=== PATIENT | female | born 1960 ===

== ENCOUNTER 2020-07-06 06:48 | Outpatient (CLI) | payer MEDICARE, MEDICAID, SELFPAY ==
--- NOTE | ~2020-07-06 | MR_ITS ---
EXAMINATION: MR cervical spine wo/w con EXAM DATE: 07/06/2020 08:13 INDICATION: Cervicalgia, postlaminectomy syndrome. Left arm pain. TECHNIQUE: Multi-sequential, multiplanar MR images of the cervical spine were obtained without contra st. Axial T2, axial T2 MERGE sequence. Sagittal T1, T2, T2 fat saturation images also obtained. Axi al T1 weighted sequence. Patient was then injected with 17 mL Multihance intravenous contrast and re imaged. Postcontrast axial and sagittal T1-weighted fat saturation sequences were obtained. There ar e no prior studies for comparison. FINDINGS: Study is limited due to patient motion. There is cervical thoracic levoscoliosis which is more likely compensatory for thoracic dextroscoliosis. Cervical fusion C4-C7. There is 2 mm anterolis thesis C7 on T1. The vertebral bodies are otherwise aligned. The spinal cord signal intensity and int rinsic morphology is normal. Cervicomedullary junction is normal in appearance. Paraspinal soft tissu e is unremarkable. There are no areas of abnormal enhancement on the post contrast images. Level by level evaluation: C2-C3: Disc does not extend beyond the endplate margin. Uncovertebral joint arthropathy: Mild bilateral. Facet joint arthropathy: Moderate bilateral. Neural foraminal stenosis: Mild left. Central canal stenosis: No stenosis. C3-C4: There is a mild diffuse disc bulge. Uncovertebral joint arthropathy: Mild to moderate bilateral. Facet joint arthropathy: Moderate to severe left, mild to moderate right. Neural foraminal stenosis: Moderate left, mild right. Central canal stenosis: Mild. C4-C5: This level is fused. Uncovertebral joint arthropathy: Mild to moderate right. Facet joint arthropathy: Moderate right, mild left. Neural foraminal stenosis: Mild to moderate right. Central canal stenosis: No stenosis. C5-C6: This level is fused. Uncovertebral joint arthropathy: Mild bilateral. Facet joint arthropathy: Mild bilateral. Neural foraminal stenosis: No stenosis. Central canal stenosis: No stenosis. C6-C7: This level is fused. Uncovertebral joint arthropathy: Mild to moderate bilateral. Facet joint arthropathy: Mild bilateral. Neural foraminal stenosis: Mild to moderate right, mild left. Central canal stenosis: No stenosis. C7-T1: Disc does not extend beyond the endplate margin. Uncovertebral joint arthropathy: None. Facet joint arthropathy: Severe right, mild to moderate left. Neural foraminal stenosis: Moderate right. Central canal stenosis: No stenosis. IMPRESSION: 1. Cervical fusion C4-7. 2. No acute findings. Reviewed, dictated and finalized at location B.
[2020-07-06 07:29] LABS: Estimated Glomerular Filt Rate > 60
== END 2020-07-06 06:49 | disposition home or self-care (01) ==
PROVIDERS: Visit Provider Nurse Practitioner Family
DX: M54.2 Cervicalgia (principal); M96.1 Postlaminectomy syndrome, not elsewhere classified; Z98.1 Arthrodesis status
CPT/HCPCS: 72156; A9577

== ENCOUNTER 2024-04-29 16:10 | Outpatient (CLI) | payer MEDICARE, MEDICAID, SELFPAY ==
--- NOTE | ~2024-04-29 | XR_ITS ---
Cervical Spine: AP, lateral, open-mouth views Clinical History: Pain Findings: The normal lordotic curve is maintained. There is anterior fusion from C4 to C5. There is a dditional anterior fusion from C6 to C7. There is moderate facet arthropathy throughout the cervical spine.. Pre-vertebral soft tissues are unremarkable. Impression: Postoperative change, as above. Diffuse facet arthropathy. Reviewed, dictated and finalized at location . ITY CONTROL ENGINEERING TECHNICIAN Impression: Postoperative change, as above. Diffuse facet arthropathy.
--- OUTSIDE RECORDS SUMMARY | 2024-04-29 18:33 | XMS_ITS | Referral Summary ---
Author Organization [facility] [address] [place] [id number] Care Team Providers Care Newspaper Vendor Name Role Phone Allan Khalil MD Primary Care Provider +1- [phone] Encounters Date Type Department Care Team Description 04/25/2024 Orders Only [facility] [address] [place] [address] [place], [place] [id number] EnriqueSaleem Neck pain (Primary Dx) 04/25/2024 Telephone [facility] [address] [place] [address] [place] [id number] Susy Lyon from Last 3 Months Allergies Active Allergy Reactions Criticality Noted Date Comments Adhesive Tape-Silicones Blisters High 02/22/2018 Codeine Itching Low 02/19/2018 Medications nortriptyline (PAMELOR) 50 mg capsule Take 50 mg by mouth 2 (two) times a day. 7 Active lisinopril-hydr oCHLOROthiazide (PRINZIDE,ZESTO RETIC) 20-25 mg per tabletIndicatio ns:hypertension Take 1 tablet by mouth daily. Active amLODIPine (NORVASC) 10 mg tablet Take 5 mg by mouth daily 9 Active tiZANidine (ZANAFLEX) 4 mg tablet Take 4 mg by mouth 3 (three) times a day 3 9 Active arm brace misc Out of sling 3 for meals exercises and bathing, and as tolerated. Use ice as much as possible. 1 each 1 07/18/201 9 Active naproxen (NAPROSYN) 500 mg tablet Take 1 tablet (500 mg total) by mouth 2 (two) times a day with meals 60 tablet 3 0 Active Additional Information Patient not taking.Reported on 05/07/2019 HYDROcodone-angelita taminophen (NORCO) 5-325 mg per tabletIndicatio ns:Pain Take 1 tablet by mouth every 4 (four) hours as needed for pain 60 tablet 0 Active Active Problems Problem Noted Date Diagnosed Date Superior labrum anterior-to- posterior (SLAP) tear of left shoulder 02/25/2019 Scar contracture 04/22/2018 Problem involving surgical incision 04/22/2018 Adhesive capsulitis of left shoulder 02/12/2018 Bicipital tendinitis, unspecified laterality Complete rotator cuff tear o r rupture of left shoulder, not specified as traumatic 09/14/2017 Impingement syndrome of left shoulder 08/01/2017 Cervical vertebral fusion 07/11/2017 Radiculopathy of cervical region 06/09/2017 Articular cartilage disorder of upper arm 2017 Adjacent segment disease with spinal stenosis Spinal stenosis in cervical region 11/16/2016 Social History Tobacco Use Types Packs/Day Years Used Date Smoking Tobacco: Former Cigarettes Q uit: 2013 Smokeless Tobacco: Never Alcohol Use Standard Drinks/Week Comments No 0 (1 standard drink = 0.6 oz pur e alcohol) Comments No Sex and Gender Information Value Date Recorded Sex Assigned at Not on file Legal Sex Female 9:59 AM BONE PROCESS OPERATOR Gender Identity Not on file Sexual Orientation Not on file Occupation Industry Job Start Date Job End Date disabled Not on file Not on file Not on file Last Filed Vital Signs Vital Sign Reading Time Taken Comments Blood Pressure 104/60 02/25/2019 2:20 PM BONE PROCESS OPERATOR Pulse 84 02/25/2019 2:20 PM BONE PROCESS OPERATOR Temperature 36.5 C (97.7 F) 02/25/2019 1:25 PM BONE PROCESS OPERATOR Respiratory Rate 13 02/25/2019 2:20 PM BONE PROCESS OPERATOR Oxygen Saturation 99% 02/25/2019 2:20 PM BONE PROCESS OPERATOR Inhaled Oxygen Concentration - - Weight 88.9 kg (196 lb) 05/07/2019 8:04 AM BONE PROCESS OPERATOR Height 165.1 cm (5' 5 ) 05/07/2019 8:04 AM BONE PROCESS OPERATOR Body Mass Index 32.62 05/07/2019 8:04 AM BONE PROCESS OPERATOR Plan of Treatment Not on file Medical Devices Implanted Type Area Data Communications Software Consultant Device Identifier Shelf Expiration Date Model / Serial / Lot Ar[employer]rex Inc [id number] Suturebridge [place] Drill Guide Punch Tap Set Implant Achilles - [id number] Implanted:Qty: 1 on 09/14/2017 by Zach Posey MD at [facility] Left: Shoulder Ar[employer]rex Inc 04/05/2019 AR-8928BC-C P / / [id number] Ar[employer]rex Inc Ar-2260 Button Drill Forest Ranger Technician Screw Kit Arthroscopic Fixation Sterile - [id number] Implanted:Qty: 1 on 09/14/2017 by Zach Posey MD at [facility] Left: Shoulder [employer] Inc 05/03/2022 AR-2260 / / [id number] Ar[employer]rex Inc Ar-2324bcctt Swivelock C 4.75mm 19.1mm Closed Eyelet Vent [place] Suture - [id number] Implanted:Qty: 1 on 09/20/2018 by Zach Posey MD at [facility] Left: Shoulder [employer] Inc 07/03/2020 AR-2324BCCT T / / [id number] Ar[employer]rex Inc [id number] Swivelock Tigerwire Arthrex 4.75mm 22mm 2 Load 2 Tip Retention - [id number] Implanted:Qty: 2 on 09/20/2018 by Zach Posey MD at [facility] Left: Shoulder [employer] Inc 06/03/2020 AR-2324BCC- 2 / / [id number] Allosource [id number] Allomend 4x4cm Nonmesh 2-3.3mm Xthick Graft Soft Tissue Acellular - [id number] Implanted:Qty: 1 on 02/25/2019 by Goldy Jensen MD at [facility] Left: Shoulder Allosource 03/01/2020 [id number] / / [id number] [employer] [id number] Surelock 1.4mm Preload Flexible Cut Off Tender Glass 2 [place] Suture Uhmwpe - [id number] Implanted:Qty: 4 on 02/25/2019 by Goldy Jensen MD at [facility] Left: Shoulder [employer] 01/04/2020 [id number] / / [id number] [facility] [employer] -[id number] Quattro X Force Fiber 5.5mm 1 Row 2 Strand Simple Stitch [facility] - [id number] Implanted:Qty: 1 on 02/25/2019 by Goldy Jensen MD at [facility] Left: Shoulder [employer] 05/09/2022 -[id number] / / [id number] Insurance MEDICARE [facility] MEDICARE [facility] Address: [address] [address] [place] [address] IDPA MEDICARE [facility] Address: [address] [address] [place]PA MEDICARE [facility] Address: [address] [address] [place] [address] IDPA Care Teams Newspaper Vendor Relationship Specialty [place] [id number] [address] PCP - General Gastroenterology 10/18/18
--- OUTSIDE RECORDS SUMMARY | 2024-04-29 18:33 | XMS_ITS | Clinical Summary ---
Author Organization [facility] [address] [place] [address] Care Team Providers Care Slip Cover Estimator Name Role Phone Allan Khalil MD Primary Care Provider +1- [phone] Allergies Active Allergy Reactions Criticality Noted Date [...] as much as possible. 1 each 1 9 Active naproxen (NAPROSYN) 500 mg tablet [...] stenosis Spinal stenosis in cervical region 11/16/2016 Encounters Date Type Department Care Team Description 04/25/2024 Orders Only [facility] [address] [facility] [address] [place], [place] [id number] Saleem Nunez Neck pain (Primary Dx) 04/25/2024 Telephone [facility] [address] [facility] [address] [place] [address] Susy Lyon from Last 3 Months Surgical History Surgery Date Site/Laterality Comments HYSTERECTOMY CERVICAL FUSION 2002 and 2017 ROTATOR CUFF REPAIR 09/14/2017 Left LEFT Arthroscopy Shoulder BICIPITAL TENODESIS Acromioplasty, mini open rotator cuff repair BLOCK/PAIN BALL ARTHREX - Left Z-PLASTY REPAIR 05/17/2018 TUBAL LIGATION SHOULDER ARTHROSCOPY 02/22/2018 Left LEFT Arthroscopy Shoulder with debridement SHOULDER ARTHROSCOPY 09/20/2018 Left Arthroscopy shoulder rotator cuff repair - Left SHOULDER ARTHROSCOPY 02/25/2019 Left Medical History Medical History Date Comments Hypertension PONV (postoperative nausea and vomiting) GERD (gastroesophageal reflux disease) Rotator cuff injury Radiculopathy of cervical region Articular cartilage disorder involving upper arm , left Spinal stenosis of cervical region Fibroid DDD (degenerative disc disease), lumbar Family History Medical History Relation Name Comments Cancer Mother breast cancer Hypertension Mother Relation Name Status Comments Father unsure Mother Alive Social History Tobacco Use Types Packs/Day Years Used Date Smoking Tobacco: Former Cigarettes Q uit: 2013 Smokeless Tobacco: Never Alcohol Use Standard Drinks/Week Comments No 0 (1 standard drink = 0.6 oz pur e alcohol) Comments No Sex and Gender Information Value Date Recorded Sex Assigned at Not on file Legal Sex Female 9:59 AM RESEARCH & ANALYTICS MANAGER Gender Identity Not on file Sexual Orientation Not on file Occupation Industry Job Start Date Job End Date disabled Not on file Not on file Not on file Obstetrics History Last Filed Vital Signs Vital Sign Reading Time Taken Comments Blood Pressure 104/60 02/25/2019 2:20 PM RESEARCH & ANALYTICS MANAGER Pulse 84 02/25/2019 2:20 PM RESEARCH & ANALYTICS MANAGER Temperature 36.5 C (97.7 F) 02/25/2019 1:25 PM RESEARCH & ANALYTICS MANAGER Respiratory Rate 13 02/25/2019 2:20 PM RESEARCH & ANALYTICS MANAGER Oxygen Saturation 99% 02/25/2019 2:20 PM RESEARCH & ANALYTICS MANAGER Inhaled Oxygen Concentration - - Weight 88.9 kg (196 lb) 05/07/2019 8:04 AM RESEARCH & ANALYTICS MANAGER Height 165.1 cm (5' 5 ) 05/07/2019 8:04 AM RESEARCH & ANALYTICS MANAGER Body Mass Index 32.62 05/07/2019 8:04 AM RESEARCH & ANALYTICS MANAGER Plan of Treatment Health Maintenance Due Date Last Done Comments Breast Cancer Screening-Mammogram 1962 Colon Cancer Screening-Colonoscopy 1962 Depression Screening 1962 Hepatitis C Screening 1962 DTaP/Tdap/Td Vaccine (1 - Tdap) 1973 Hepatitis B Screening 1980 Regular Well Visit/Exam 18-64 1980 Zoster Vaccine (2 of 2) 01/07/2019 11/12/2018 Influenza Vaccine (#1) 2023 9, 11/19/2017 Pneumococcal vaccine <65 Aged Out 018, 01/06/2017 No longer eligible based on patient's age to complete this topic Medical Devices Implanted Type Area Smooth Plater Device Identifier Shelf Expiration Date Model / Serial / Lot Arthrex Inc [id number] Suturebridge [place] Drill Guide Punch Tap Set Implant Achilles - [id number] Implanted:Qty: 1 on 09/14/2017 by Zach Posey MD at [facility] Left: Shoulder [employer] Inc 04/05/2019 AR-8928BC-C P / / [id number] Ar[employer]rex Inc Ar-2260 Button Drill Automobile Radiator Mechanic Screw Kit Arthroscopic Fixation Sterile - [id number] Implanted:Qty: 1 on 09/14/2017 by Zach Posey MD at [facility] Left: Shoulder [employer] Inc 05/03/2022 AR-2260 / / [id number] Ar[employer]rex Inc Ar-2324bcctt Swivelock C 4.75mm 19.1mm Closed Eyelet Vent [place] Suture - [id number] Implanted:Qty: 1 on 09/20/2018 by Zach Posey MD at [facility] Left: Shoulder [employer] Inc 07/03/2020 AR-2324BCCT T / / [id number] Ar[employer]rex Inc [id number] Swivelock Tigerwire Arthrex 4.75mm 22mm 2 Load 2 Tip Retention - [id number] Implanted:Qty: 2 on 09/20/2018 by Zach Posey MD at [facility] Left: Shoulder [employer] Inc 06/03/2020 AR-2324BCC- 2 / / [id number] Allosource [id number] Allomend 4x4cm Nonmesh 2-3.3mm Xthick Graft Soft Tissue Acellular - [id number] Implanted:Qty: 1 on 02/25/2019 by Goldy Jensen MD at [facility] Left: Shoulder Allosource 03/01/2020 [id number] / / [id number] [employer] Cm-[id number] Surelock 1.4mm Preload Flexible Sales Consultant Residential Manager 2 [place] Suture Uhmwpe - [id number] Implanted:Qty: 4 on 02/25/2019 by Goldy Jensen MD at [facility] Left: Shoulder [employer] 01/04/2020 CM-9614F / / [id number] [employer] [id number] Quattro X Force Fiber 5.5mm 1 Row 2 Strand Simple Stitch Preload - [id number] Implanted:Qty: 1 on 02/25/2019 by Goldy Jensen MD at [facility] Left: Shoulder [employer] 05/09/2022 CM-9255 / / [id number] Insurance MEDICARE [employer] MEDICARE [place] IDPA MEDICARE [employer] Care Teams Slip Cover Estimator Relationship Specialty [place] [id number] [address] PCP - General Gastroenterology 10/18/18
== END 2024-04-29 16:11 | disposition home or self-care (01) ==
DX: M54.2 Cervicalgia (principal)
CPT/HCPCS: 72040